=== PATIENT | male | born 1950 | race Caucasian/White ===

== ENCOUNTER → 2017-10-21 | Outpatient (CLI) | payer MEDICARE ==
[~2017-10-21] MED LIST: CENTCHW4 CHEW; CHRO400T5 PO; COEN400C P-ARTICULR; FLUC10S PO; MELO7.5T27 PO; OMEG100046 PO; SAW450CA2 PO; SELE200T17 PO; SIMV40TA PO; VITA-142 PO; VITA500T83 PO; XYZA5TAB2 PO; ZOCO40TA PO
[2017-10-21 11:13] LABS: AMORPHOUS SEDIMENT, URINE MOD; BACTERIA, URINE RARE /hpf; BILIRUBIN, URINE NEG (NEG); BLOOD, URINE NEG (NEG); GLUCOSE,URINE NEG (NEG); KETONE, URINE NEG (NEG); NITRITE,URINE NEG (NEG); PH, URINE 7.5 (5.0-8.5); URINE COLOR YELLOW (YELLW/STRAW); URINE LEUKOCYTE ESTERASE NEG (NEG)
[2017-10-21 11:21] LABS: AUTOMATED NEUTROPHIL # 3.5 TH/MM3 (1.8-7.7); BASOPHIL % 0.4 % (0.0-2.0); EOSINOPHIL # 0.2 TH/MM3 (0-0.4); EOSINOPHIL % 3.2 % (0.0-4.0); HEMATOCRIT 44.3 % (39.0-51.0); HEMOGLOBIN 15.1 GM/DL (13.0-17.0); LYMPH % 20.1 % (9.0-44.0); MEAN CELL VOLUME 97.5 FL (80.0-100.0); MEAN CORPUSCULAR HEMOGLOBIN 33.3 PG (27.0-34.0); MEAN CORPUSCULAR HGB CONC 34.1 % (32.0-36.0); MONO % 8.2 % (0.0-8.0); MONOCYTE # 0.4 TH/MM3 (0-0.9); NEUT % 68.1 % (16.0-70.0); PLATELET COUNT 228 TH/MM3 (150-450); RED BLOOD COUNT 4.54 MIL/MM3 (4.50-5.90); RED CELL DISTRIBUTION WIDTH 13.6 % (11.6-17.2); WHITE BLOOD COUNT 5.2 TH/MM3 (4.0-11.0)
[2017-10-21 11:23] LABS: PROTHROMBIN TIME - PATIENT 10.4 SEC (9.8-11.6)
[2017-10-21 11:38] LABS: ALBUMIN 3.8 GM/DL (3.4-5.0); AST (GOT) 23 U/L (15-37); BICARBONATE 30.2 MEQ/L (21.0-32.0); BLOOD UREA NITROGEN 12 MG/DL (7-18); CALCIUM 9.5 MG/DL (8.5-10.1); CHLORIDE 106 MEQ/L (98-107); CREATININE 1.03 MG/DL (0.60-1.30); GLOMERULAR FILTRATION RATE 72 ML/MIN (>89); GLUCOSE,FASTING 94 MG/DL (74-99); SODIUM (NA) 142 MEQ/L (136-145)
[2017-10-21 11:43] LABS: ALKALINE PHOSPHATASE 76 U/L (45-117); ALT (GPT) 28 U/L (12-78); TOTAL BILIRUBIN ADULT 0.8 MG/DL (0.2-1.0); TOTAL PROTEIN 7.8 GM/DL (6.4-8.2)
--- NOTE | 2017-10-21 12:07 | RADRPT ---
EXAM DATE/TIME: 10/21/2017 11:44 [facility] COMPARISON: No previous studies available for comparison. INDICATIONS : Evaluate for pneumonia, pnuemothorax, or other communicable disease. MEDICAL HISTORY : None. SURGICAL HISTORY : None. ENCOUNTER: Initial ACUITY: 1 day PAIN SCORE: 0/10 LOCATION: Bilateral chest FINDINGS: Trace scarring left base. No infiltrate, effusion or pneumothorax. Heart size normal. CONCLUSION: No evidence of acute cardiopulmonary disease. Ashish Canchola MD on October 21, 2017 at 12:05 Board Certified Radiologist. This report was verified electronically.
[2017-10-21 12:21] LABS: WESTERGREN SEDIMENTATION RATE 10 mm/hr (0-20)
--- NOTE | 2017-10-21 22:47 | EKG ---
Date Performed: 10/21/2017 Time Performed: 09:42:31 PTAGE: 66 years EKG: Sinus rhythm LEFT ANTERIOR FASCICULAR BLOCK ABNORMAL ECG PREVIOUS TRACING : 01/11/2010 03.46 Since the previous tracing, no significant change noted DOCTOR: Issac Lugo Interpretating Date/Time 10/21/2017 22:46:18
== END ==
LOC: CPRE 09:21
PROVIDERS: ATTEND Orthopaedic Surgery
DX: Z01.812 Encounter for preprocedural laboratory examination (principal); Z01.810 Encounter for preprocedural cardiovascular examination; Z01.811 Encounter for preprocedural respiratory examination; M25.50 Pain in unspecified joint; M16.12 Unilateral primary osteoarthritis, left hip; M79.609 Pain in unspecified limb; Z79.01 Long term (current) use of anticoagulants; Z96.60 Presence of unspecified orthopedic joint implant
CPT/HCPCS: 36415; 71046; 80053; 81001; 85025; 85610; 85652; 85730; 93005

== ENCOUNTER 2017-11-06 05:35 | Inpatient (IN) | payer MEDICARE ==
[~2017-11-06] VITALS: Ht 175.3 cm; Wt 78.0 kg
[~2017-11-06 05:35] MED LIST changes: -FLUC10S PO; -XYZA5TAB2 PO; -ZOCO40TA PO
[2017-11-06] MEDS ORDERED: LACTATED RINGER'S 1000 ML IV PRN (06:00)
[2017-11-06] MEDS ORDERED: METOPROLOL TARTRATE 25 MG TAB PO PRN (06:00)
[2017-11-06] MEDS ORDERED: ceFAZolin 2 GM PREMIX 50 ML IV SCH (06:00)
[2017-11-06] MEDS ORDERED: POVIDONE IODINE 5% (ANTISEPSIS KIT) 4 APPLICATIONS EACH NARE PRN (06:00)
[2017-11-06] MEDS ORDERED: EXPAREL PERI-ARTICULAR INJECTION (TOTAL VOL. 60 ML) P-ARTICULR SCH ×2 (06:00)
[2017-11-06] MEDS ORDERED: CHLORHEXIDINE GLUCONATE 2 % 1 PACK (2 CLOTHS) TOPICAL PRN (06:00)
[2017-11-06] MEDS ORDERED: TRANEXAMIC ACID INJ 780 MG in SODIUM CHLORIDE 0.9% INJ 100 ML IV SCH ×2 (06:00→10:30)
[2017-11-06] MEDS ORDERED: VANCOMYCIN 1 GM/200 ML PREMIX ON-CALL IV SCH (06:00)
[2017-11-06] MEDS ORDERED: DEXAMETHASONE SOD PHOS 20 MG/5 ML VIAL IV PUSH PRN (06:00)
[2017-11-06] MEDS ORDERED: SODIUM CHLORID 0.9% 500 ML IV PRN (06:00)
[2017-11-06] MEDS ORDERED: POVIDONE IODINE 7.5% SCRUB 118 ML BOTTLE TOPICAL SCH (06:00)
[2017-11-06] MEDS ORDERED: CHLORHEXIDINE GLUCONATE 4% SOLN 120 ML BTL TOPICAL SCH (06:00)
[2017-11-06] MEDS ORDERED: GENTAMICIN SULFATE 80 MG/2 ML VIAL ONE (06:00)
[2017-11-06] MEDS ORDERED: ACETAMINOPHEN 1000 MG/100 ML 100 ML IV ONE (06:24)
[2017-11-06] MEDS ORDERED: MIDAZOLAM HCL 2 MG/2 ML VIAL ONE (06:25)
[2017-11-06] MEDS ORDERED: FAMOTIDINE 20 MG/2 ML VIAL ONE (06:32)
--- NOTE | 2017-11-06 07:09 | HHI.DCPOC ---
Discharge Care Plan Diagnosis: (1) Osteoarthritis of left hip (2) Status post total hip replacement, left Your Health Problems Are: Difficulty with ADL Goals to Promote Your Health * To prevent worsening of your condition and complications * To maintain your health at the optimal level Directions to Meet Your Goals Take your medications as prescribed Follow your dietary instruction Follow activity as directed Keep your appointments as scheduled Take your immunizations and boosters as scheduled If your symptoms worsen call your PCP, if no PCP go to Urgent Care Center or Emergency Room Smoking is Dangerous to Your Health. Avoid second hand smoke Call the 24-hour hour crisis hotline for domestic abuse at Miguel Hernadez Nov 06, 2017 07:09
--- NOTE | 2017-11-06 07:10 | HHI.FF ---
Face to Face Verification Diagnosis: (1) Osteoarthritis of left hip (2) Status post total hip replacement, left Physical Therapy Gait training, Transfer training, bed to chair Hip: Total hip Left LE Weight Bearing: WB as tolerated Left LE Range of Motion: Active ROM Nursing Nursing: Antonino fletcher Dressing Changes: Do not change dressing Additional Instructions First dressing change in the office. I have seen patient Henry Hall on 11/06/17. My clinical findings support the need for the requested home health care services because: Limited ability to care for self High risk of falls I certify that my clinical findings support that this patient is homebound because: Post-op weakness Unsteady gait/balance Miguel Hernadez Nov 06, 2017 07:10
[2017-11-06] MEDS ORDERED: COMMODE 3-IN-11 MIS (07:13)
[2017-11-06] MEDS ORDERED: WALKER WHEELS/F1 MIS (07:13)
--- NOTE | 2017-11-06 09:04 | RADRPT ---
EXAM DATE/TIME: 11/06/2017 06:46 [facility] COMPARISON: No previous studies available for comparison. INDICATIONS : Instrument verification. MEDICAL HISTORY : None. SURGICAL HISTORY : None. ENCOUNTER: Subsequent ACUITY: 1 day PAIN SCORE: Non-responsive. LOCATION: Left hip. FINDINGS: The patient is status post a total hip arthroplasty with a bipolar prosthesis. Prosthesis is well-sea inderjit. Alignment is anatomic. A fracture is not appreciated. No radiopaque surgical instruments CONCLUSION: Anatomic alignment. Mamadou Marte MD FACR on November 06, 2017 at 9:02 Board Certified Radiologist. This report was verified electronically.
--- NOTE | 2017-11-06 09:05 | RADRPT ---
EXAM DATE/TIME: 11/06/2017 06:46 [facility] COMPARISON: No previous studies available for comparison. INDICATIONS : Post-op total left hip arthroplasty. MEDICAL HISTORY : None. SURGICAL HISTORY : None. ENCOUNTER: Initial ACUITY: 1 day PAIN SCORE: Non-responsive. LOCATION: Left HIP. FINDINGS: The patient is status post a total hip arthroplasty with a bipolar prosthesis. Prosthesis is well-sea inderjit. Alignment is anatomic. A fracture is not appreciated. CONCLUSION: Anatomic alignment. No retained surgical instruments Mamadou Marte MD FACR on November 06, 2017 at 9:03 Board Certified Radiologist. This report was verified electronically.
--- NOTE | 2017-11-06 09:10 | PD.OP ---
cc: Uday Leo MD Operative Report Date of Surgery: Nov 06, 2017 Preoperative Diagnosis: Left hip severe osteoarthritis Postoperative Diagnosis: Same Procedure: Left total hip arthroplasty Anesthesia: General Surgeon: Uday Leo Paste Up Artist(s): MIYA Falcon The surgical procedure was assisted by my Advanced Registered Nurse Practitioner. My DRAGLINE OPERATOR presence was necessary throughout this case for the manipulation and positioning of the surgical extremity. My DRAGLINE OPERATOR was assisting me throughout the duration of this procedure. The skill set of an Advance Registered Nurse Practitioner was medically necessary to complete this procedure. During the surgical case, the certified surgical assistant was working at the back table and the Advance Registered Nurse Practitioner was directly assisting me. Operation and Findings: IMPLANT DESCRIPTION: 1. [place] Gription Cup, acetabular size 54. 2. [place] AltrX polyethylene, neutral. 4. [place] femoral stem size 12, no collar, standard offset. 5. Femoral head/neck metal, 36, +5. ESTIMATED BLOOD LOSS: 200 cc. JUSTIFICATION FOR PROCEDURE: The patient has end-stage osteoarthritis to the hip. There is an attached conservative measures pathway form in the chart that describes the nonoperative measures that were undertaken prior to consideration of surgical management. The patient understood the risks and benefits of surgical management. See my office notes for further details. PROCEDURE: The patient was brought back to the operative theatre. Adequate anesthesia was obtained. The patient received intravenous vancomycin and Ancef. The patient was carefully placed on the operative table. The lower extremity was prepped and draped in the usual sterile fashion. Fluoroscopic images were obtained. We made a standard anterior incision over the hip. We dissected through the TFL fascia, exposing the anterior capsule. Arthrotomy was performed in a T-shaped fashion. The capsule was tagged with a #2 FiberWire. End-stage arthritis was identified. Osteotomy was performed through the femoral neck exposing the acetabulum. Remnants of the labrum were resected and osteophytes were removed. We sequentially reamed the acetabulum. We trialed the hip and placed the final cup into position. This was done under fluoroscopic guidance to obtain the appropriate inclination and anteversion. A manhole cover was placed into the acetabular component. We then placed the final polyethylene into position and confirmed that it was well seated. Capsular attachments on the calcar and the inner aspect of the greater trochanter were resected. On the proximal aspect of the femur we used a rongeur , box osteotome, canal finder, sequential broaches and lateralizing rasp. We calcar planed the proximal femur. Then thoroughly irrigated the wound. We trialed the hip with the appropriate size stem. We placed the final stem in to position and trialed again. The hip was stable while it was externally rotated 70 degrees when the leg was lowered to the floor. The final head was applied, and final fluoroscopic images were obtained. The wound was thoroughly irrigated again. Interarticular injection of liposomal bupivacaine was given. The capsule was closed with #2 FiberWire and #1 Vicryl. The deep fascia was closed with a #2 Stratafix, followed by 2-0 Vicryl in the skin and Dermabond dressing. Postop plan is to weight-bear as tolerated. DVT prophylaxis will be performed with Angela, SHAUNA jarrell, early mobilization, and Lovenox followed by aspirin. Uday Leo MD Nov 06, 2017 09:10
[2017-11-06] MEDS ORDERED: ONDANSETRON HCL 4 MG/2 ML VIAL IVP PRN (09:15)
[2017-11-06] MEDS ORDERED: MAGNESIUM HYDROXIDE SUSP 30 ML CUP PO PRN (09:15)
[2017-11-06] MEDS ORDERED: BISACODYL 10 MG SUPP RECTAL PRN (09:15)
[2017-11-06] MEDS ORDERED: ACETAMINOPHEN/HYDROcodone 325 MG/5 MG TAB PO PRN (09:15)
[2017-11-06] MEDS ORDERED: ALUMINUM/MAGNESIUM/SIMETH 30 ML CUP PO PRN (09:15)
[2017-11-06] MEDS ORDERED: NALOXONE HCL 0.4 MG/ML AMP IV PUSH PRN (09:15)
[2017-11-06] MEDS ORDERED: Post-op Orders (for Pharmacy) XX ONE (09:15)
[2017-11-06] MEDS ORDERED: MORPHINE SULFATE 4 MG/ML INJ IV PUSH PRN (09:15)
[2017-11-06] MEDS ORDERED: diphenhydrAMINE HCL 50 MG/ML VIAL IV PUSH PRN (09:15)
[2017-11-06] MEDS ORDERED: DO NOT ADM ANY ANTICOAGULANT DRUGS PRN (09:25)
[2017-11-06] MEDS ORDERED: MORPHINE SULFATE 2 MG/ML SYRINGE ONE (09:26)
[2017-11-06] MEDS ORDERED: *morphine SULFATE 8 MG/ML PERIprocedure ONLY ONE (09:38)
[2017-11-06] MEDS: SODIUM CHLOR 0.9% 1000 ML INJ 1,000 ML IV SCH ×2 (11:00→20:57)
--- NOTE | 2017-11-06 11:02 | RADRPT ---
EXAM DATE/TIME: 11/06/2017 10:43 [facility] COMPARISON: HIP LEFT (AP&LAT 2/3VWS) WO AP PELVIS, November 06, 2017, 6:46. INDICATIONS : Post-op left hip. MEDICAL HISTORY : None. SURGICAL HISTORY : None. ENCOUNTER: Initial ACUITY: 1 day PAIN SCORE: 0/10 LOCATION: Left Hip. FINDINGS: Left total hip prosthesis is present in good position. Hardware appears intact. Alignment is anatomic . The adjacent pelvis is unremarkable. CONCLUSION: Satisfactory postop appearance Ashish Yeh MD on November 06, 2017 at 10:55 Board Certified Radiologist. This report was verified electronically.
[2017-11-06] MEDS ORDERED: GLYCOPYRROLATE 1 MG/5 ML SYRINGE IV PUSH ONE (12:00)
[2017-11-06] MEDS ORDERED: ePHEDrine/NS 25 MG/5 ML SYRINGE IV ONE (12:00)
[2017-11-06] MEDS ORDERED: ONDANSETRON HCL 4 MG/2 ML VIAL IV ONE (12:00)
[2017-11-06] MEDS ORDERED: ROCURONIUM INJ 50 MG/5 ML SYRINGE IV PUSH ONE (12:00)
[2017-11-06] MEDS ORDERED: KETOROLAC TROMETHAMINE 30 MG/ML (IVP) VIAL IV PUSH ONE (12:00)
[2017-11-06] MEDS ORDERED: NEOSTIGMINE 5 MG/5 ML SYRINGE IV PUSH ONE (12:00)
[2017-11-06] MEDS ORDERED: LIDOCAINE HCL 1% PF 5 ML SYRINGE OTHER ONE (12:00)
[2017-11-06] MEDS ORDERED: PROPOFOL 200 MG/20 ML AMP IV ONE (12:00)
[2017-11-06] MEDS ORDERED: PHENYLEPH/NS 1000 MCG/10 ML SYR IV ONE (12:00)
[2017-11-06] MEDS ORDERED: LACTATED RINGER'S 1000 ML INJ 1,000 ML IV ONE (12:00)
[2017-11-06 13:30] VITALS: BP 126/68; PULSE 84; RESP 18; TEMP 98.5; O2SAT 98
[2017-11-06] MEDS: ACETAMINOPHEN/HYDROcodone 325 MG/5 MG TAB PO PRN ×3 (15:20→23:27)
[2017-11-06 16:00] VITALS: BP 116/65; PULSE 88; RESP 18; TEMP 98.2; O2SAT 96
[2017-11-06 20:00] VITALS: BP 147/69; PULSE 90; RESP 18; TEMP 97.9; O2SAT 98
[2017-11-06] MEDS ORDERED: ZOLPIDEM TARTRATE 5 MG TAB PO PRN (21:00)
[2017-11-06] MEDS ORDERED: PRAVASTATIN SOD 80 MG TAB PO SCH (21:00)
[2017-11-07] VITALS: BP 119/59; PULSE 78; RESP 18; TEMP 98.3; O2SAT 97
[2017-11-07 02:00] VITALS: BP 113/58; PULSE 73; RESP 18; TEMP 98.2; O2SAT 96
[2017-11-07] MEDS: SODIUM CHLOR 0.9% 1000 ML INJ 1,000 ML IV SCH ×2 (06:30→16:19)
[2017-11-07 06:42] LABS: HEMOGLOBIN 13.1 GM/DL (13.0-17.0); MEAN CELL VOLUME 96.1 FL (80.0-100.0); MEAN CORPUSCULAR HEMOGLOBIN 33.2 PG (27.0-34.0); MEAN CORPUSCULAR HGB CONC 34.5 % (32.0-36.0); PLATELET COUNT 246 TH/MM3 (150-450); RED BLOOD COUNT 3.96 MIL/MM3 (4.50-5.90); RED CELL DISTRIBUTION WIDTH 13.7 % (11.6-17.2); WHITE BLOOD COUNT 9.9 TH/MM3 (4.0-11.0)
[2017-11-07 08:00] VITALS: BP 119/56; PULSE 74; RESP 18; TEMP 97.8; O2SAT 97
[2017-11-07] MEDS ORDERED: DEXAMETHASONE SOD PHOS 20 MG/5 ML VIAL IV ONE (08:00)
[2017-11-07] MEDS ORDERED: ENOXAPARIN SODIUM 40 MG/0.4 ML SYRINGE SQ SCH (08:30)
[2017-11-07 11:52] VITALS: BP 153/70; PULSE 76; RESP 18; TEMP 98.2; O2SAT 95
[2017-11-07 16:00] VITALS: BP 122/58; PULSE 84; RESP 18; TEMP 98; O2SAT 97
--- NOTE | 2017-11-07 17:54 | PD.ORT.PN ---
Subjective Subjective Remarks doing very well Objective Vitals Vital Signs Date Time Temp Pulse Resp B/P (MAP) Pulse Ox O2 Delivery O2 Flow Rate FiO2 11/07/17 16:00 98.0 84 18 122/58 (79) 97 11/07/17 11:52 98.2 76 18 153/70 (97) 95 11/07/17 10:18 21 11/07/17 08:00 97.8 74 18 119/56 (77) 97 11/07/17 02:00 98.2 73 18 113/58 (76) 96 11/07/17 00:00 98.3 78 18 119/59 (79) 97 11/06/17 20:00 97.9 90 18 147/69 (95) 98 I/O 11/06/17 11/06/17 11/06/17 11/07/17 11/07/17 11/07/17 07:00 15:00 23:00 07:00 15:00 23:00 Intake Total 1933.8 ml 370 ml 693 ml 960 ml Output Total 750 ml 700 ml Balance 1183.8 ml 370 ml 693 ml -700 ml 960 ml Intake Oral 240 ml 960 ml IV Total 1933.8 ml 370 ml 453 ml Output Urine Total 550 ml 700 ml Estimated Blood Loss 200 ml # Voids 1 3 5 # Bowel Movements 0 0 Result Diagram: 11/07/17 0523 Imaging xray look fine Objective Remarks Left hip dressed and clean no drainage, min swelling DNVI calf with no swelling, and no tenderness Assessment & Plan Assessment and Plan POD #1 s/p L ALEX Lovenox WBAT d/c home with [facility] Uday Leo MD Nov 07, 2017 17:54
[2017-11-07] MEDS ORDERED: MULTIVITAMINS/MINERALS THERAPEUTIC TAB PO SCH (21:00)
[2017-11-07] MEDS ORDERED: DOCUSATE SODIUM 100 MG CAP PO SCH (21:00)
--- NOTE | 2017-11-09 12:53 | HHI.DS ---
Discharge Summary Admission Date Nov 06, 2017 at 05:35 Discharge Date: Nov 07, 2017 Admitting Diagnosis OA of the left hip Status post total hip replacement, left Diagnosis: (1) Osteoarthritis of left hip Diagnosis: Principal ICD Codes: M16.12 - Unilateral primary osteoarthritis, left hip (2) Status post total hip replacement, left Diagnosis: Principal ICD Codes: Z96.642 - Presence of left artificial hip joint Procedures Left ALEX Brief History This is a 66 year old male patient with severe OA of the left hip. CBC/BMP: 11/07/17 0523 Significant Findings Laboratory Tests Test 11/07/17 05:23 Red Blood Count 3.96 MIL/MM3 (4.50-5.90) Hematocrit 38.0 % (39.0-51.0) PE at Discharge Left hip dressed and clean no drainage, min swelling DNVI calf with no swelling, and no tenderness Hospital Course The patient was admitted to the hospital for severe OA of the left hip to have a left ALEX. The patient tolerated the surgery well without complications. The patient is WBAT. The patient was placed on Lovenox followed by ASA for DVT prophylaxis. The patient is on a regular diet. The patient was discharged home with home health. The patient will f/u in the office with Dr. Leo or MIYA Cortes as previously scheduled. Pt Condition on Discharge: Stable Discharge Disposition: Disch w/ Home Health Serv Discharge Instructions Diet Instructions: As Tolerated, No Restrictions Activities You Can Perform: Weight Bearing as Poppy Activities to Avoid: Strenuous Activity Follow up Referrals: Orthopedics with Uday Leo MD New Medications: Commode 3-in-1 (Commode 3-in-1) 1 Mis Mis EA .XX DIRECTED, #1 0 Refills Walker with Front Wheels (Walker with Front Wheels) 1 Mis Mis EA .XX DIRECTED, #1 0 Refills Continued Medications: Ascorbic Acid ER (Vitamin C ER) 500 Mg Tino 500 MG PO DAILY for Nutritional Supplement, TAB 0 Refills Chromium (Chromium) 400 Mcg Tab 1 TAB PO DAILY Multiple Vitamins W/ Minerals (Centrum) 1 Chew 1 TAB CHEW DAILY for Nutritional Supplement, TAB 0 Refills Selenium (Selenium) 200 Mcg Tab 200 MG PO DAILY for Nutritional Supplement, TAB 0 Refills Simvastatin (Simvastatin) 40 Mg Tab 40 MG PO HS for Cholesterol Management, #30 TAB 0 Refills Discontinued Medications: Coenzyme Q10 (Ubidecarenone) (Coq-10) 400 Mg Cap 1 CAP P-ARTICULR DAILY Meloxicam (Meloxicam) 7.5 Mg Tab 7.5 MG PO DAILY for Arthritis Pain, TAB 0 Refills [place]-3/Dha/Epa/Fish Oil (Fish Oil 1,000 mg Softgel) 1,000 Mg (120 Mg-180 Mg) Capsule 1 TAB PO DAILY Saw Howes (Serenoa Repens) (Saw Howes (Serenoa Repens)) 450 Mg Cap 450 MG PO DAILY, CAP 0 Refills Vitamin E Acetate (Vitamin E) 400 Unit Capsule 1 CAP PO DAILY Miguel HernadezP Nov 09, 2017 12:53
== END 2017-11-07 19:16 | disposition home health service (06) | DRG 470 ==
LOC: HSDI 05:35 → N06B 13:33
PROVIDERS: ADMIT Orthopaedic Surgery; ATTEND Orthopaedic Surgery
PROC: 0SRB02A Replacement of Left Hip Joint with Metal on Polyethylene Synthetic Substitute, Uncemented, Open Approach (ICD-10-PCS; principal; 2017-11-06 07:10)
DX: M16.12 Unilateral primary osteoarthritis, left hip (principal); E78.5 Hyperlipidemia, unspecified; I25.10 Atherosclerotic heart disease of native coronary artery without angina pectoris; M21.70 Unequal limb length (acquired), unspecified site; M70.60 Trochanteric bursitis, unspecified hip; M51.36 Other intervertebral disc degeneration, lumbar region
CPT/HCPCS: 73501; 73502; 76000; 85027; 86850; 86900; 86901; 94150; C1776; C9290; J0131; J0690; J1100; J1580; J1650; J1885; J2250; J2270; J2370; J2405; J2710; J3010; J3370; J7030; J7120